=== PATIENT | female | born 1950 | race African-American/Black ===

== ENCOUNTER 2020-11-30 12:33 | Emergency (ER) | payer OTHER ==
[2020-11-30 12:40] VITALS: BP 155/72; PULSE 77; TEMP 98.5; BMI 43.9
[2020-11-30] MEDS ORDERED: ALBUTEROL SO4 HFA INHALER IH PRN (13:27)
[2020-11-30] MEDS ORDERED: ACETAMINOPHEN 325 MG TABLET (FP) PO ONE (13:31)
[2020-11-30] MEDS ORDERED: ACETAMINOPHEN 325 MG TABLET (FP) ONE (14:02)
[2020-11-30] MEDS ORDERED: ALBUTEROL SO4 HFA INHALER IH ONE (14:23)
[2020-11-30] MEDS ORDERED: FLUTICASONE PROP 0.05% 16 GM NASAL SPRAY NS ONE (16:37)
== END 2020-11-30 17:33 | disposition home or self-care (01) ==
LOC: JER 12:33
PROC: 3E0F7GC Introduction of Other Therapeutic Substance into Respiratory Tract, Via Natural or Artificial Opening (ICD-10-PCS; principal; 2020-11-30)
DX: R07.0 Pain in throat (principal); R09.82 Postnasal drip
CPT/HCPCS: 70360-TC-FY; 71046-TC-FY; 71250-TC; 87804; 87880; 99285-25; C9803; U0003; U0005

== ENCOUNTER 2023-06-26 18:47 | Inpatient (IN) | payer OTHER ==
[2023-06-26] MEDS ORDERED: FAMOTIDINE 20 MG/50 ML IVPB 20 MG/50 ML MG IVPB ONE ×2 (20:57→21:32)
[2023-06-26 21:15] LABS: THROAT:GRP A STREP NOT DETECTED (NOTDETECTED)
[2023-06-26 21:37] LABS: BASO % 0.2 % (0-2.0); EOS % 1.3 % (0-4.5); HEMATOCRIT 35.4 % (32.4-45.2); HEMOGLOBIN 11.6 GM/dL (10.7-15.3); LYMPH % 32.3 % (8-40); MCH 32.8 pg (25.7-33.7); MCHC 32.6 g/dl (32.0-36.0); MEAN CELL VOLUME 100.5 fl (80-96); MEAN PLT VOLUME 9.2 fl (7.5-11.1); MONO % 10.4 % (3.8-10.2); NEUT % 55.8 % (42.8-82.8); PLATELET COUNT 202 10^3/uL (134-434); RBC 3.53 M/mm3 (3.60-5.2); WHITE BLOOD COUNT 9.7 K/mm3 (4.0-10.0)
[2023-06-26 21:43] LABS: INR 0.94 (0.83-1.09); PROTHROMBIN TIME (PATIENT) 10.9 SEC (9.7-13.0)
[2023-06-26 21:55] LABS: POTASSIUM 3.9 mmol/L (3.5-5.1)
[2023-06-26 21:58] LABS: ALBUMIN 2.7 g/dl (3.4-5.0); BLOOD UREA NITROGEN 23.9 mg/dL (7-18); MAGNESIUM 1.8 mg/dL (1.8-2.4)
[2023-06-26 22:00] LABS: CREATININE 1.2 mg/dL (0.55-1.3)
[2023-06-26 22:02] LABS: BILIRUBIN,TOTAL 0.2 mg/dL (0.2-1); TOT PROT 6.8 g/dl (6.4-8.2)
[2023-06-26] MEDS ORDERED: ACETAMINOPHEN 1000 MG/100 ML BAG IVPB ONE (22:52)
[2023-06-26] MEDS ORDERED: ACETAMINOPHEN INJECTION 100 ML IVPB ONE (23:56)
[2023-06-27] MEDS ORDERED: SODIUM CHLORIDE 1,000 ML IV SCH (00:15)
[2023-06-27] MEDS ORDERED: ACETAMINOPHEN 1000 MG/100 ML BAG IVPB ONE (00:44)
[2023-06-27 00:49] LABS: EPI CELLS 8 /uL (0-25.1); HYALINE CASTS 0 /uL (0-3.1); PH,URINE 5.5 (5.0-8.0); URINE APPEARANCE CLEAR; URINE BACTERIA 70 /uL (0-1359); URINE BILIRUBIN NEGATIVE (NEGATIVE); URINE COLOR YELLOW; URINE CRYSTALS NONE SEEN /hpf; URINE GLUCOSE (UA) NEGATIVE (NEGATIVE); URINE KETONE NEGATIVE (NEGATIVE); URINE LEUK ESTERASE 1+ (NEGATIVE); URINE NITRITE NEGATIVE (NEGATIVE); URINE PROTEIN NEGATIVE (NEGATIVE); URINE RBC 6 /uL (0-23.9); URINE UROBILINOGEN 0.2 mg/dL (0.2-1.0); URINE WBC 18 /uL (0-25.8)
[2023-06-27] MEDS ORDERED: BENZOCAINE/MENTH/CETYLPYRD CL 1 EACH LOZENGE MM PRN (08:32)
[2023-06-27] MEDS ORDERED: ACETAMINOPHEN 1000 MG/100 ML BAG IVPB PRN (08:32)
[2023-06-27] MEDS ORDERED: LACTATED RINGERS SOLUTION 1,000 ML/1,000 ML INFUS.BAG IV SCH (08:45)
[2023-06-28 01:31] VITALS: BMI 39.9
[2023-06-28 07:58] LABS: HEMATOCRIT 36.8 % (32.4-45.2); HEMOGLOBIN 11.8 GM/dL (10.7-15.3); MCH 32.1 pg (25.7-33.7); MEAN CELL VOLUME 100.6 fl (80-96); MEAN PLT VOLUME 9.2 fl (7.5-11.1); PLATELET COUNT 180 10^3/uL (134-434); RBC 3.66 M/mm3 (3.60-5.2); WHITE BLOOD COUNT 8.1 K/mm3 (4.0-10.0)
[2023-06-28 08:14] LABS: POTASSIUM 4.3 mmol/L (3.5-5.1)
[2023-06-28 08:20] LABS: CALCIUM 8.2 mg/dL (8.5-10.1)
[2023-06-28 08:21] LABS: ALBUMIN 2.5 g/dl (3.4-5.0)
[2023-06-28 08:23] LABS: CREATININE 0.7 mg/dL (0.55-1.3)
[2023-06-28 08:24] LABS: PHOSPHOROUS 2.9 mg/dL (2.5-4.9)
[2023-06-28 08:25] LABS: BILIRUBIN,TOTAL 0.4 mg/dL (0.2-1); TOT PROT 6.3 g/dl (6.4-8.2)
[2023-06-28] MEDS ORDERED: BENZOCAINE/MENTH/CETYLPYRD CL 1 EACH LOZENGE MM PRN (10:16)
[2023-06-28] MEDS: CHOLESTYRAMINE/ASPARTAME 4 GM PACKET PO SCH (14:49)
[2023-06-28] MEDS: ENOXAPARIN NA (PORCINE) 40 MG/0.4 ML DISP.SYRIN SQ SCH (16:19)
[2023-06-28] MEDS: DIPHENOXYLATE 2.5/ATROPINE.025 1 COMBO TABLET PO SCH (21:34)
[2023-06-29] MEDS: ENOXAPARIN NA (PORCINE) 40 MG/0.4 ML DISP.SYRIN SQ SCH (09:32)
[2023-06-29] MEDS: DIPHENOXYLATE 2.5/ATROPINE.025 1 COMBO TABLET PO SCH ×2 (09:32→22:35)
[2023-06-29] MEDS: CHOLESTYRAMINE/ASPARTAME 4 GM PACKET PO SCH (09:32)
[2023-06-30] MEDS: CHOLESTYRAMINE/ASPARTAME 4 GM PACKET PO SCH (09:09)
[2023-06-30] MEDS: DIPHENOXYLATE 2.5/ATROPINE.025 1 COMBO TABLET PO SCH ×2 (09:09→22:32)
[2023-06-30] MEDS: ENOXAPARIN NA (PORCINE) 40 MG/0.4 ML DISP.SYRIN SQ SCH (09:09)
[2023-07-01 05:52] VITALS: RESP 18
[2023-07-01] MEDS: DIPHENOXYLATE 2.5/ATROPINE.025 1 COMBO TABLET PO SCH (09:56)
[2023-07-01] MEDS: ENOXAPARIN NA (PORCINE) 40 MG/0.4 ML DISP.SYRIN SQ SCH (09:56)
[2023-07-01] MEDS: CHOLESTYRAMINE/ASPARTAME 4 GM PACKET PO SCH (09:56)
[2023-07-01 10:00] VITALS: BP 122/79; PULSE 89; TEMP 98
== END 2023-07-01 15:10 | disposition home or self-care (01) | DRG 391 ==
LOC: JER 18:47 → JERBED 20:56 → OBSVTOIN 06-27 00:13 → J7W 06-27 23:31
PROVIDERS: ADMIT Internal Medicine; ATTEND Internal Medicine
DX: K52.9 Noninfective gastroenteritis and colitis, unspecified (principal); U07.1 COVID-19; N39.0 Urinary tract infection, site not specified; I10 Essential (primary) hypertension; D64.9 Anemia, unspecified; F31.9 Bipolar disorder, unspecified; G40.909 Epilepsy, unspecified, not intractable, without status epilepticus; R26.2 Difficulty in walking, not elsewhere classified; Z98.84 Bariatric surgery status; Z88.0 Allergy status to penicillin
CPT/HCPCS: 0241U-QW; 36415; 71045-TC-FY; 74177-TC; 80048; 80053; 81003; 82150; 83605; 83690; 83735; 83880; 83993; 84100; 84484; 85025; 85027; 85610; 85730; 86850; 86900; 86901; 87045; 87046; 87086; 87186; 87205; 87209; 87324; 87449; 87651; 93005; 93010; 97116-GP; 97161-GP; 99285-25; G0378; Q9967

== ENCOUNTER 2023-07-23 21:32 | Emergency (ER) | payer OTHER ==
[2023-07-23 21:58] VITALS: BMI 41.3
[2023-07-23 22:50] LABS: BASO % 0.9 % (0-2.0); HEMATOCRIT 32.9 % (32.4-45.2); HEMOGLOBIN 10.8 GM/dL (10.7-15.3); LYMPH % 41.9 % (8-40); MCH 33.4 pg (25.7-33.7); MCHC 32.9 g/dl (32.0-36.0); MEAN CELL VOLUME 101.6 fl (80-96); MEAN PLT VOLUME 8.7 fl (7.5-11.1); MONO % 11.2 % (3.8-10.2); PLATELET COUNT 233 10^3/uL (134-434); RBC 3.24 M/mm3 (3.60-5.2); RDW 14.5 % (11.6-15.6); WHITE BLOOD COUNT 5.3 K/mm3 (4.0-10.0)
[2023-07-23 23:16] LABS: POTASSIUM 4.4 mmol/L (3.5-5.1)
[2023-07-23 23:18] LABS: ALBUMIN 2.7 g/dl (3.4-5.0); BLOOD UREA NITROGEN 13.4 mg/dL (7-18)
[2023-07-23 23:23] LABS: BILIRUBIN,TOTAL 0.2 mg/dL (0.2-1); TOT PROT 6.8 g/dl (6.4-8.2)
[2023-07-24 01:15] LABS: EPI CELLS 4 /uL (0-25.1); HYALINE CASTS 0 /uL (0-3.1); URINE APPEARANCE CLEAR; URINE BACTERIA 122 /uL (0-1359); URINE BILIRUBIN NEGATIVE (NEGATIVE); URINE COLOR YELLOW; URINE GLUCOSE (UA) NEGATIVE (NEGATIVE); URINE KETONE NEGATIVE (NEGATIVE); URINE LEUK ESTERASE TRACE (NEGATIVE); URINE NITRITE NEGATIVE (NEGATIVE); URINE PROTEIN TRACE (NEGATIVE); URINE RBC 26 /uL (0-23.9); URINE UROBILINOGEN 0.2 mg/dL (0.2-1.0); URINE WBC 5 /uL (0-25.8)
[2023-07-24 09:42] VITALS: BP 137/72; PULSE 66; RESP 18; TEMP 98
== END 2023-07-24 09:46 ==
LOC: JER 21:32
DX: R53.1 Weakness (principal); R42 Dizziness and giddiness; R19.7 Diarrhea, unspecified; R63.0 Anorexia; M79.89 Other specified soft tissue disorders
CPT/HCPCS: 36415; 71045-TC-FY; 80053; 81003; 85025; 87086; 93005; 93010; 99285-25

== ENCOUNTER 2024-04-05 17:04 | Inpatient (IN) | payer OTHER ==
[2024-04-05 18:23] LABS: BASO % 0.2 % (0-2.0); EOS % 0.4 % (0-4.5); HEMATOCRIT 35.5 % (32.4-45.2); HEMOGLOBIN 11.5 GM/dL (10.7-15.3); LYMPH % 29.5 % (8-40); MCH 33.2 pg (25.7-33.7); MCHC 32.5 g/dl (32.0-36.0); MEAN CELL VOLUME 102.1 fl (80-96); MEAN PLT VOLUME 9.6 fl (7.5-11.1); MONO % 10.6 % (3.8-10.2); NEUT % 59.3 % (42.8-82.8); PLATELET COUNT 180 10^3/uL (134-434); RBC 3.48 M/mm3 (3.60-5.2); RDW 15.1 % (11.6-15.6)
[2024-04-05] MEDS ORDERED: ACETAMINOPHEN INJECTION 100 ML IVPB ONE (18:30)
[2024-04-05] MEDS: ACETAMINOPHEN 1000 MG/100 ML BAG IVPB ONE (18:56)
[2024-04-05 19:12] LABS: POTASSIUM 4.3 mmol/L (3.5-5.1)
[2024-04-05 19:15] LABS: CALCIUM 8.4 mg/dL (8.5-10.1)
[2024-04-05 19:16] LABS: ALBUMIN 2.3 g/dl (3.4-5.0); BLOOD UREA NITROGEN 12.6 mg/dL (7-18); MAGNESIUM 1.9 mg/dL (1.8-2.4)
[2024-04-05 19:19] LABS: CREATININE 0.7 mg/dL (0.55-1.3)
[2024-04-05 19:21] LABS: BILIRUBIN,TOTAL 0.4 mg/dL (0.2-1); TOT PROT 6.3 g/dl (6.4-8.2)
[2024-04-06 00:59] LABS: EPI CELLS 34 /uL (0-25.1); HYALINE CASTS 0 /uL (0-3.1); URINE APPEARANCE CLOUDY; URINE BACTERIA >9,000 /uL (0-1359); URINE BILIRUBIN NEGATIVE (NEGATIVE); URINE COLOR YELLOW; URINE GLUCOSE (UA) NEGATIVE (NEGATIVE); URINE KETONE TRACE (NEGATIVE); URINE LEUK ESTERASE 1+ (NEGATIVE); URINE NITRITE POSITIVE (NEGATIVE); URINE PROTEIN NEGATIVE (NEGATIVE); URINE UROBILINOGEN 0.2 mg/dL (0.2-1.0); URINE WBC 76 /uL (0-25.8)
[2024-04-06 08:52] LABS: BASO % 0.1 % (0-2.0); EOS % 1.8 % (0-4.5); HEMATOCRIT 30.4 % (32.4-45.2); HEMOGLOBIN 10.3 GM/dL (10.7-15.3); LYMPH % 44.2 % (8-40); MCH 34.3 pg (25.7-33.7); MCHC 33.8 g/dl (32.0-36.0); MEAN CELL VOLUME 101.6 fl (80-96); MONO % 10.8 % (3.8-10.2); NEUT % 43.1 % (42.8-82.8); PLATELET COUNT 157 10^3/uL (134-434); RBC 2.99 M/mm3 (3.60-5.2); RDW 14.9 % (11.6-15.6); WHITE BLOOD COUNT 4.9 K/mm3 (4.0-10.0)
[2024-04-06 09:07] LABS: POTASSIUM 3.9 mmol/L (3.5-5.1)
[2024-04-06 09:10] LABS: CALCIUM 8.3 mg/dL (8.5-10.1)
[2024-04-06 09:11] LABS: BLOOD UREA NITROGEN 10.8 mg/dL (7-18)
[2024-04-06 09:14] LABS: CREATININE 0.5 mg/dL (0.55-1.3)
[2024-04-06] MEDS ORDERED: ALBUTEROL SO4 HFA INHALER IH PRN (10:21)
[2024-04-06] MEDS ORDERED: CITALOPRAM HYDROBROMIDE 10 MG TABLET ONE (11:31)
[2024-04-06] MEDS ORDERED: FAMOTIDINE 20 MG TABLET ONE (11:31)
[2024-04-06] MEDS ORDERED: MULTIVITAMINS (DAILY MVI) TABLET (FP) ONE (11:31)
[2024-04-06] MEDS ORDERED: APIXABAN 5 MG TABLET ONE (11:31)
[2024-04-06] MEDS ORDERED: TOPIRAMATE 25 MG TABLET ONE (11:31)
[2024-04-06] MEDS ORDERED: FOLIC ACID 1 MG TABLET (FP) ONE (11:31)
[2024-04-06] MEDS ORDERED: DIVALPROEX SODIUM 250 MG TABLET E.C. ONE (11:32)
[2024-04-06] MEDS ORDERED: LORATADINE 10 MG TABLET ONE (11:32)
[2024-04-06] MEDS: LORATADINE 10 MG TABLET PO SCH (11:51)
[2024-04-06] MEDS: CITALOPRAM HYDROBROMIDE 10 MG TABLET PO SCH (11:51)
[2024-04-06] MEDS: DIVALPROEX SODIUM 500 MG TABLET E.C. PO SCH (11:52)
[2024-04-06] MEDS: MULTIVITAMINS (DAILY MVI) TABLET (FP) PO SCH (11:53)
[2024-04-06] MEDS: APIXABAN 5 MG TABLET PO SCH (11:53)
[2024-04-06] MEDS: FOLIC ACID 1 MG TABLET (FP) PO SCH (11:53)
[2024-04-06] MEDS: TOPIRAMATE 25 MG TABLET PO SCH (11:53)
[2024-04-06] MEDS: FAMOTIDINE 20 MG TABLET PO SCH (11:53)
[2024-04-06] MEDS ORDERED: ACETAMINOPHEN 500 MG TABLET (FP) PO PRN (15:35)
[2024-04-06] MEDS: ACETAMINOPHEN 500 MG TABLET (FP) PO PRN (16:15)
[2024-04-06] MEDS: ARIPiprazole 10 MG TABLET PO SCH (16:15)
[2024-04-06] MEDS: oxyCODONE HCL 5 MG TABLET PO PRN (20:11)
[2024-04-06] MEDS: traZODone HCL 50 MG TABLET (FP) PO SCH (21:52)
[2024-04-06] MEDS ORDERED: DIPHENOXYLATE 2.5/ATROPINE.025 1 COMBO TABLET PO SCH (22:00)
[2024-04-06] MEDS: DIPHENOXYLATE 2.5/ATROPINE.025 1 COMBO TABLET PO SCH (23:22)
[2024-04-07 09:42] LABS: BASO % 0.3 % (0-2.0); HEMATOCRIT 32.6 % (32.4-45.2); HEMOGLOBIN 10.8 GM/dL (10.7-15.3); LYMPH % 34.7 % (8-40); MCH 33.8 pg (25.7-33.7); MCHC 33.2 g/dl (32.0-36.0); MEAN CELL VOLUME 101.8 fl (80-96); MEAN PLT VOLUME 9.3 fl (7.5-11.1); MONO % 11.8 % (3.8-10.2); NEUT % 52.2 % (42.8-82.8); PLATELET COUNT 166 10^3/uL (134-434); RDW 14.8 % (11.6-15.6); WHITE BLOOD COUNT 5.3 K/mm3 (4.0-10.0)
[2024-04-07] MEDS: AZTREONAM 1 GM in DEXTROSE 5%-WATER - 50 ML IVPB SCH ×2 (09:52→17:05)
[2024-04-07] MEDS: CHOLESTYRAMINE/NUTRASWEET 4 GM PACKET PO SCH (09:52)
[2024-04-07] MEDS ORDERED: AZTREONAM 1 GM in DEXTROSE 5%-WATER - 50 ML IVPB SCH (10:00)
[2024-04-07] MEDS: FLUTICASONE PROP 0.05% 16 GM NASAL SPRAY NS SCH (11:10)
[2024-04-07 11:20] LABS: BLOOD UREA NITROGEN 12.9 mg/dL (7-18); CALCIUM 8.2 mg/dL (8.5-10.1); CREATININE 0.7 mg/dL (0.55-1.3); POTASSIUM 4.2 mmol/L (3.5-5.1)
[2024-04-07] MEDS ORDERED: DIPHENOXYLATE 2.5/ATROPINE.025 1 COMBO TABLET PO PRN (12:39)
[2024-04-07] MEDS: MELATONIN 5 MG TABLETS PO PRN (21:59)
[2024-04-08 08:09] LABS: POTASSIUM 3.8 mmol/L (3.5-5.1)
[2024-04-08 08:14] LABS: CALCIUM 8.3 mg/dL (8.5-10.1)
[2024-04-08 08:15] LABS: BLOOD UREA NITROGEN 13.7 mg/dL (7-18)
[2024-04-08 08:18] LABS: CREATININE 0.7 mg/dL (0.55-1.3)
[2024-04-08 08:21] LABS: BASO % 0.1 % (0-2.0); EOS % 2.7 % (0-4.5); HEMATOCRIT 33.5 % (32.4-45.2); HEMOGLOBIN 11.3 GM/dL (10.7-15.3); LYMPH % 47.1 % (8-40); MCH 34.2 pg (25.7-33.7); MCHC 33.8 g/dl (32.0-36.0); MEAN CELL VOLUME 101.5 fl (80-96); MEAN PLT VOLUME 9.4 fl (7.5-11.1); MONO % 10.1 % (3.8-10.2); PLATELET COUNT 170 10^3/uL (134-434); RDW 15.2 % (11.6-15.6); WHITE BLOOD COUNT 4.1 K/mm3 (4.0-10.0)
[2024-04-09 11:04] LABS: BASO % 0.2 % (0-2.0); EOS % 2.4 % (0-4.5); HEMOGLOBIN 11.8 GM/dL (10.7-15.3); LYMPH % 45.5 % (8-40); MCH 34.1 pg (25.7-33.7); MCHC 32.9 g/dl (32.0-36.0); MEAN CELL VOLUME 103.9 fl (80-96); MEAN PLT VOLUME 9.3 fl (7.5-11.1); MONO % 11.7 % (3.8-10.2); NEUT % 40.2 % (42.8-82.8); PLATELET COUNT 183 10^3/uL (134-434); RBC 3.46 M/mm3 (3.60-5.2); RDW 15.1 % (11.6-15.6)
[2024-04-09 11:09] LABS: ALBUMIN 2.3 g/dl (3.4-5.0); CALCIUM 8.7 mg/dL (8.5-10.1)
[2024-04-09 11:10] LABS: BLOOD UREA NITROGEN 14.5 mg/dL (7-18)
[2024-04-09 11:13] LABS: CREATININE 0.7 mg/dL (0.55-1.3)
[2024-04-09 11:14] LABS: BILIRUBIN,TOTAL 0.4 mg/dL (0.2-1); TOT PROT 6.3 g/dl (6.4-8.2)
[2024-04-11 08:41] LABS: BASO % 0.2 % (0-2.0); EOS % 1.8 % (0-4.5); HEMATOCRIT 33.8 % (32.4-45.2); HEMOGLOBIN 11.3 GM/dL (10.7-15.3); LYMPH % 54.3 % (8-40); MCH 33.8 pg (25.7-33.7); MCHC 33.3 g/dl (32.0-36.0); MEAN CELL VOLUME 101.6 fl (80-96); MEAN PLT VOLUME 8.6 fl (7.5-11.1); MONO % 9.4 % (3.8-10.2); NEUT % 34.3 % (42.8-82.8); PLATELET COUNT 216 10^3/uL (134-434); RBC 3.33 M/mm3 (3.60-5.2); RDW 15.2 % (11.6-15.6); WHITE BLOOD COUNT 4.7 K/mm3 (4.0-10.0)
[2024-04-11 09:07] LABS: POTASSIUM 4.3 mmol/L (3.5-5.1)
[2024-04-11 09:08] LABS: CALCIUM 8.6 mg/dL (8.5-10.1)
[2024-04-11 09:09] LABS: BLOOD UREA NITROGEN 13.7 mg/dL (7-18)
[2024-04-11 09:12] LABS: CREATININE 0.8 mg/dL (0.55-1.3)
[2024-04-11 15:52] VITALS: BMI 31.8
[2024-04-12 06:25] VITALS: BP 128/65; PULSE 56; RESP 18; TEMP 97.9
[2024-04-12] MEDS: APIXABAN 2.5 MG TABLET PO SCH (11:15)
== END 2024-04-12 11:56 | DRG 690 ==
LOC: JER 17:04 → JERBED 20:47 → J8W 04-06 13:59
PROVIDERS: ADMIT Internal Medicine; ATTEND Internal Medicine
DX: N39.0 Urinary tract infection, site not specified (principal); R26.2 Difficulty in walking, not elsewhere classified; F25.9 Schizoaffective disorder, unspecified; R53.83 Other fatigue; G40.909 Epilepsy, unspecified, not intractable, without status epilepticus; M54.2 Cervicalgia; R53.1 Weakness; R74.01 Elevation of levels of liver transaminase levels
CPT/HCPCS: 0241U-QW; 36415; 70450-TC; 70486-TC; 71045-TC-FY; 72125-TC; 72131-TC; 72141-TC; 72170-TC-FY; 80048; 80053; 81003; 83735; 84439; 84443; 84484; 85025; 87086; 87186; 93005; 93010; 93970-TC; 97116-GP; 97161-GP; 99285-25; J0131